=== PATIENT | female | born 1980 | race Caucasian/White ===

== ENCOUNTER 2022-07-19 21:42 | Emergency (ER) | payer BC ==
[~2022-07-19] VITALS: Ht 165.1 cm; Wt 61.2 kg
--- NOTE | 2022-07-19 21:57 | NUR ---
[id number] FROM HOME C/O FEELING DIZZY AND PASSING OUT WALKING TO RESTROOM X 1 HR, -HEAD TRAUMA. PLACED ON BED, AAOX4, BREATHING EVEN AND UNLABORED SATURATING AT 98%RA, BP- 99/46
--- NOTE | 2022-07-19 23:00 | NUR ---
[employer] AT BEDSIDE
[2022-07-19] MEDS: IV NS 0.9% 1,000 ML BAG IV ONE (23:20)
[2022-07-19 23:29] LABS: BASOPHILS % (AUTO) 0.3 % (0.0-2.0); EOSINOPHILS % (AUTO) 0.4 % (0.0-6.0); HEMATOCRIT 38 % (33-45); HEMOGLOBIN 12.5 g/dL (11.5-14.8); LYMPHOCYTES # (AUTO) 0.7 K/uL (0.8-4.8); LYMPHOCYTES % (AUTO) 6.2 % (20.0-44.0); MEAN CORPUSCULAR HGB CONC 33 g/dl (31.0-36.0); MEAN CORPUSCULAR VOLUME 88 fL (82-100); MONOCYTES # (AUTO) 0.7 K/uL (0.1-1.30); MONOCYTES % (AUTO) 5.8 % (2.0-12.0); NEUTROPHILS % (AUTO) 87.3 % (43.0-81.0); PLATELET COUNT (AUTO) 288 K/uL (150-450); RED BLOOD CELL COUNT(AUTO) 4.28 MIL/uL (4.0-5.2); WHITE BLOOD COUNT (AUTO) 11.5 K/uL (4.3-11.0)
[2022-07-19 23:56] LABS: ALANINE AMINOTRANSFERASE 28 U/L (12-78); ALBUMIN 3.8 g/dL (3.4-5.0); ALKALINE PHOSPHATASE 115 U/L (46-116); ASPARTATE AMINOTRANSFERASE 8 U/L (15-37); BILIRUBIN,DIRECT 0.1 mg/dL (0.0-0.2); BILIRUBIN,TOTAL 0.3 mg/dL (0.2-1.0); CARBON DIOXIDE 28 mmol/L (21-32); CHLORIDE 105 mmol/L (98-107); CREATININE 0.9 mg/dL (0.6-1.3); GLUCOSE 153 mg/dL (74-106); POTASSIUM 3.5 mmol/L (3.5-5.1); SODIUM SERUM 140 mmol/L (136-145); TOTAL PROTEIN, SERUM 7.2 g/dL (6.4-8.2); UREA NITROGEN, BLOOD 12 mg/dL (7-18)
[2022-07-20 00:22] VITALS: BP 109/46
--- NOTE | 2022-07-20 01:51 | NUR ---
PT AGREED TO HAVE CTA; NOTIFIED RADIOLOGY
[2022-07-20] MEDS ORDERED: IOHEXOL-350 100 ML VIAL IV ONE (02:08)
--- NOTE | 2022-07-20 03:48 | NUR ---
Patient discharged to home in stable condition. Written and verbal after care instructions given. Patient verbalizes understanding of instruction.
== END 2022-07-20 03:48 | disposition home or self-care (01) ==
LOC: ER 21:45
DX: R55 Syncope and collapse (principal); Z85.3 Personal history of malignant neoplasm of breast; Z60.2 Problems related to living alone
CPT/HCPCS: 99285; 96360; 70450; 71045; 93005; 85025; 80048; 80076; 85378; 36415 ×2; 84484 ×2; 85730; 86850; 71275; 82962; J7030; Q9967